=== PATIENT | female | born 1970 | race Caucasian/White ===

== ENCOUNTER 2021-03-07 09:00 | Outpatient (RCR) | payer MEDICAID, SELFPAY | END 2021-04-27 15:21 | disposition home or self-care (01) | LOC: HO.PT 09:00 | PROVIDERS: PCP Internal Medicine; Visit Provider Orthopaedic Surgery | DX: S93.402D Sprain of unspecified ligament of left ankle, subsequent encounter (principal); M76.72 Peroneal tendinitis, left leg | CPT/HCPCS: 97110; 97112; 97140; 97162 ==

== ENCOUNTER 2023-08-08 13:01 | Outpatient (AMB) | payer MEDICARE, MEDICAID, SELFPAY ==
--- NOTE | 2023-08-08 13:15 | MHC.OFFVIS ---
Intake Vital Signs 08/08/23 13:16 Height 5 ft 4 in Weight 210 lb BMI 36.0 Pulse 72 Pulse Source Pulse Oximeter Pulse Oximetry (%) 97 Oxygen Delivery Method Room Air Intake Visit Reasons: shortness of breathe Model And Pattern Supervisor Required: No Allergies oxycodone Allergy (Severe, Verified 08/08/23 13:18) Itching ZyrTEC Allergy (Unknown, Uncoded 08/08/23 13:18) Unknown HPI HPI Comments History of Present Illness Details The patient is here for pulmonary evaluation. The patient is a 52 year woman with a known history of asthma. Apparently she has been in usual state health until noticing increasing shortness of breath. The shortness of breath has been progressively getting worse. The shortness of breath appears to be intermittent. The patient had 1 episode where she had a syncopal episode. It was noted that she was bradycardic. Ultimately after that she did undergo a event monitor. Now having a cardiac workup. In meantime she has been describing some increasing shortness of breath. We did go for brief walking oximetry and the patient's oxygen was fine. Her breathing currently is stable. At this point will assess her further for underlying obstructive airway conditions specially with smoking history. However, my suspicion is that there may be a cardiac component to her intermittent shortness of breath. [facility] Medical History (Updated 08/10/23 @ 21:05 by Win Hurtado MD) Dyspnea GIL (obstructive sleep apnea) Asthma Social History (Updated 08/08/23 @ 13:20 by CHRISTIE Marcelo) Patient Tobacco Use Status: Former Tobacco user Tobacco use type: Cigarette Years Smoked: 30+ Years Review of Systems Const Denies fever(s) Eyes Denies change in vision ENT Reports nasal congestion Card Denies chest pain, Reports lightheadedness, Reports dyspnea and Reports slow heart rate Resp Reports dyspnea and Denies wheezing GI Reports no additional complaints Musc Reports myalgias Skin/Breast Denies rash Aubrey/Lymph Denies lymphadenopathy Aller/Immun Denies wheezing Physical Exam Vital Signs: Last Vital Signs Pulse 72 08/08/23 13:16 Pulse Ox 97 08/08/23 13:16 Oxygen Delivery Method Room Air 08/08/23 13:16 BMI result Body Mass Index 36.0 Const General: comfortable HEENT Head: Yes normocephalic Neck Neck: Yes supple Chest Chest palpation & inspection: normal inspection of the chest Resp Effort & Inspection: normal respiratory effort Auscultation: clear to auscultation bilaterally Cardio Heart sounds: S1 normal heart sound present and S2 normal heart sound present GI Palpation (GI): Soft to palpation Skin General skin exam: no rashes or lesions noted Extrem General: Yes no clubbing, cyanosis or edema Assessment & Plan Assessment & Plan (1) Asthma: Code(s): J45.909 - Unspecified asthma, uncomplicated Qualifiers: Asthma severity: moderate Asthma persistence: persistent Asthma complication type: uncomplicated Qualified Code(s): J45.40 - Moderate persistent asthma, uncomplicated (2) GIL (obstructive sleep apnea): Code(s): G47.33 - Obstructive sleep apnea (adult) (pediatric) (3) Dyspnea: Code(s): R06.00 - Dyspnea, unspecified Qualifiers: Dyspnea type: unspecified Qualified Code(s): R06.00 - Dyspnea, unspecified Plan PFTs CXR continue Wixela DEBBI as needed complete cardiac work-up F/U 8-10 weeks Orders: Orders XR chest 2V 08/08/23 G47.33 - Obstructive sleep apnea (adult) (pediatric), J45.909 - Unspecified asthma, uncomplicated, R06.00 - Dyspnea, unspecified PFT pulmonary function test 08/08/23 G47.33 - Obstructive sleep apnea (adult) (pediatric), J45.909 - Unspecified asthma, uncomplicated, R06.00 - Dyspnea, unspecified Coding Level of Care Code New Pt Level 4 (15848) Diagnoses Moderate persistent asthma without complication J45.40 Asthma severity: moderate Asthma persistence: persistent Asthma complication type: uncomplicated GIL (obstructive sleep apnea) G47.33 Dyspnea, unspecified type R06.00 Dyspnea type: unspecified Time Spent (min) 37
[2023-08-08 13:16] VITALS: PULSE 72; O2SAT 97; BMI 36.0
== END 2023-08-08 13:45 | disposition home or self-care (01) ==
PROVIDERS: PCP Internal Medicine; Visit Provider Hospitalist
DX: J45.40 Moderate persistent asthma, uncomplicated (principal); G47.33 Obstructive sleep apnea (adult) (pediatric); R06.00 Dyspnea, unspecified
CPT/HCPCS: 99204

== ENCOUNTER 2023-08-08 13:01 | Outpatient (REF) | payer MEDICARE, MEDICAID, SELFPAY ==
--- NOTE | ~2023-08-08 | XR_ITS ---
EXAMINATION: XR CHEST CLINICAL INFORMATION: Obstructive sleep apnea. COMPARISON: Chest radiograph 11/07/2010. TECHNIQUE: 2 views of the chest were obtained. FINDINGS: Normal appearance of the cardiomediastinal silhouette. No focal airspace opacities, pleural effusion or pneumothorax. Right upper quadrant surgical clips. No acute osseous findings. XR/XR chest 2V IMPRESSION: No acute cardiopulmonary findings.
== END 2023-08-08 13:02 | disposition home or self-care (01) ==
LOC: HO.XRAY 13:01
PROVIDERS: PCP Internal Medicine; Visit Provider Hospitalist
DX: R06.00 Dyspnea, unspecified (principal); J45.909 Unspecified asthma, uncomplicated; G47.33 Obstructive sleep apnea (adult) (pediatric)
CPT/HCPCS: 71046; 99202

== ENCOUNTER 2023-09-08 08:44 | Outpatient (REF) | payer MEDICARE, MEDICAID, SELFPAY ==
[2023-09-08 07:38] VITALS: PULSE 62; RESP 16; O2SAT 99
--- NOTE | 2023-09-08 13:44 | PFT_ITS ---
Flows: FEV1: 62 % of predicted at 1.64 L FVC: 79 % of predicted at 2.62 L FEV1/FVC: 62 % Bronchodilator response: Absent Volumes: No lung volumes measurements available secondary to a technical issue. Diffusion capacity: Normal Impression: Moderate obstructive ventilatory defect with no bronchodilator response. No lung volumes measurements available secondary to a technical issue. MTDD
== END 2023-09-08 08:45 | disposition home or self-care (01) ==
LOC: HO.RESP 08:44
PROVIDERS: PCP Internal Medicine; Visit Provider Hospitalist
DX: G47.33 Obstructive sleep apnea (adult) (pediatric) (principal); J45.909 Unspecified asthma, uncomplicated; R06.00 Dyspnea, unspecified
CPT/HCPCS: 94010; 94640; 94727; 94729

== ENCOUNTER → 2023-09-08 13:44 | Outpatient (BNV) | payer MEDICARE, MEDICAID, SELFPAY | PROVIDERS: PCP Internal Medicine; Visit Provider Internal Medicine Pulmonary Disease | DX: R06.09 Other forms of dyspnea (principal) | CPT/HCPCS: 94060; 94729 ==

== ENCOUNTER 2023-10-14 14:57 | Outpatient (RCR) | payer MEDICARE, MEDICAID, SELFPAY | END 2023-10-14 16:16 | disposition home or self-care (01) | LOC: HO.PT 14:57 | PROVIDERS: PCP Nurse Practitioner; Visit Provider Internal Medicine Rheumatology | DX: M54.2 Cervicalgia (principal) | CPT/HCPCS: 97161 ==

== ENCOUNTER 2023-10-31 09:53 | Outpatient (AMB) | payer MEDICARE, MEDICAID, SELFPAY ==
--- NOTE | 2023-10-31 09:57 | A.OFFVIS_ITS ---
Vital Signs 10/31/23 09:59 Height 5 ft 4 in Weight 214 lb 15.211 oz BMI 36.9 Position Sitting Pulse 80 Pulse Source Pulse Oximeter Pulse Oximetry (%) 96 Oxygen Delivery Method Room Air Intake Visit Reasons: Shortness of breath Principal Examiner Required: No Allergies oxycodone Allergy (Severe, Verified 10/31/23 10:00) Itching ZyrTEC Allergy (Unknown, Uncoded 10/31/23 10:00) Unknown HPI Comments Details: The patient is a 53 year woman with a known history of asthma. Apparently she has been in usual state health until noticing increasing shortness of breath. The shortness of breath has been progressively getting worse. The shortness of breath appears to be intermittent. The patient had 1 episode where she had a syncopal episode. It was noted that she was bradycardic. Ultimately after that she did undergo a event monitor. Now having a cardiac workup. In meantime she has been describing some increasing shortness of breath. We did go for brief walking oximetry and the patient's oxygen was fine. Her breathing currently is stable. At this point will assess her further for underlying obstructive airway conditions specially with smoking history. However, my suspicion is that there may be a cardiac component to her intermittent shortness of breath. 10/31/2023 the patient is here for a pulmonary follow-up visit. Overall the patient has been feeling well. She does been using Wixela. She still having episodes of shortness of breath and cough. Unfortunately still smoking marijuana and also sometimes smoking a few puffs of a regular cigarette from a friend. She did have a chest x-ray which we personally reviewed demonstrating no acute disease. Although I do believe that she will be a great candidate for the lung cancer screening program. Therefore will going to refer her at this time. She has been struggling with her CPAP. She does use a nasal mask and she has a hard time with the nasal congestion. She has been using allergy medicine. I will resend her the nasal spray but I do believe that a fullface mask would probably be work best specially if she has allergies and sinusitis issues. Will request a from her [employer], [employer]. We also looked at her pulmonary function studies the patient does have evidence of COPD at this time. She is aware this and she knows she needs to refrain from any smoking of any products. PFSH Medical History (Updated 10/31/23 @ 10:31 by Win Hurtado MD) Asthma-COPD overlap syndrome Smoking Dyspnea GIL (obstructive sleep apnea) Asthma Social History (Updated 08/08/23 @ 13:20 by CHRISTIE Marcelo) Patient Tobacco Use Status: Former Tobacco user Tobacco use type: Cigarette Years Smoked: 30+ Years Review of Systems Const Denies fever(s) Eyes Denies change in vision ENT Reports nasal congestion Card Denies chest pain, Reports lightheadedness and Reports dyspnea Resp Reports dyspnea and Denies wheezing GI Reports no additional complaints Musc Reports myalgias Skin/Breast Denies rash Aubrey/Lymph Denies lymphadenopathy Aller/Immun Denies wheezing Physical Exam Vital Signs: Last Vital Signs Pulse 80 10/31/23 09:59 Pulse Ox 96 10/31/23 09:59 Oxygen Delivery Method Room Air 10/31/23 09:59 BMI result Body Mass Index 36.9 Const General: comfortable HEENT Head: Yes normocephalic Neck Neck: Yes supple Chest Chest palpation & inspection: normal inspection of the chest Resp Effort & Inspection: normal respiratory effort Auscultation: clear to auscultation bilaterally Cardio Heart sounds: S1 normal heart sound present and S2 normal heart sound present GI Palpation (GI): Soft to palpation Skin General skin exam: no rashes or lesions noted Extrem General: Yes no clubbing, cyanosis or edema Assessment & Plan Assessment & Plan (1) Asthma: Code(s): J45.909 - Unspecified asthma, uncomplicated Category: Medical Qualifiers: Asthma complication type: uncomplicated Asthma persistence: persistent Asthma severity: moderate Qualified Code(s): J45.40 - Moderate persistent asthma, uncomplicated (2) GIL (obstructive sleep apnea): Code(s): G47.33 - Obstructive sleep apnea (adult) (pediatric) Category: Medical (3) Dyspnea: Code(s): R06.00 - Dyspnea, unspecified Category: Medical Qualifiers: Dyspnea type: unspecified Qualified Code(s): R06.00 - Dyspnea, unspecified (4) Asthma-COPD overlap syndrome: Code(s): J44.89 - Other specified chronic obstructive pulmonary disease Category: Medical (5) Smoking: Code(s): F17.200 - Nicotine dependence, unspecified, uncomplicated Category: Social Hx Plan stop Wixela start Trelegy DEBBI as needed LDCT evaluation CPAP, would benefit from a full face mask. F/U 6 mo Orders: Referrals Thoracic Surgery Referral F17.200 - Nicotine dependence, unspecified, uncomplicated Medications: New fluticasone propionate 50 mcg/actuation 2 sprays intranasal DAILY 15.8 mL 11RF 30 days J31.0 - Chronic rhinitis aapgcifplss-jqxidhwjt-wfieecgu 200-62.5-25 mcg (Trelegy Ellipta) 1 inh inhalation DAILY 60 ea 12RF 30 days Coding Level of Care Code Est Pt Level 4 (12951) Diagnoses Moderate persistent asthma without complication J45.40 Asthma complication type: uncomplicated Asthma persistence: persistent Asthma severity: moderate GIL (obstructive sleep apnea) G47.33 Dyspnea, unspecified type R06.00 Dyspnea type: unspecified Asthma-COPD overlap syndrome J44.89 Smoking F17.200 Time Spent (min) 17
[2023-10-31 09:59] VITALS: PULSE 80; O2SAT 96; BMI 36.9
== END 2023-10-31 10:29 | disposition home or self-care (01) ==
PROVIDERS: PCP Internal Medicine; Visit Provider Hospitalist
DX: J45.40 Moderate persistent asthma, uncomplicated (principal); G47.33 Obstructive sleep apnea (adult) (pediatric); R06.00 Dyspnea, unspecified; J44.89 Other specified chronic obstructive pulmonary disease; F17.200 Nicotine dependence, unspecified, uncomplicated
CPT/HCPCS: 99214

== ENCOUNTER → 2023-10-31 09:53 | Outpatient (BNVA) | payer MEDICARE, MEDICAID, SELFPAY | PROVIDERS: PCP Internal Medicine; Visit Provider Hospitalist | DX: J44.89 Other specified chronic obstructive pulmonary disease (principal); J45.40 Moderate persistent asthma, uncomplicated; R06.00 Dyspnea, unspecified; G47.33 Obstructive sleep apnea (adult) (pediatric); Z87.891 Personal history of nicotine dependence | CPT/HCPCS: 99212 ==

== ENCOUNTER 2023-12-12 10:38 | Outpatient (AMB) | payer MEDICARE, MEDICAID, SELFPAY ==
--- NOTE | 2023-12-12 07:48 | A.OFFVIS_ITS ---
Intake Visit Reasons: Former Smoker Allergies oxycodone Allergy (Severe, Verified 10/31/23 10:00) Itching ZyrTEC Allergy (Unknown, Uncoded 10/31/23 10:00) Unknown HPI HPI Former Smoker: Details: Initial visit for this 53yo former smoker with a 20PYH. Patient started smoking at age 11 for 36 years at 1/2-3/4ppd. She quit 6 years ago in 2018. . Reports marijuana use 5 days a week. Notes social second hand smoke exposure. Denies exposure to chemicals or substances like asbestos. . Denies known family history of lung cancer. Denies personal history of cancers. Pre-cervical cancer - s/p partial hysterectomy. Denies chest CT in last year. . Denies recent travel outside the [place]. Denies recent respiratory illness or recent hospitalization for respiratory issues. Denies testing positive for COVID. Admits receiving COVID Vaccine. x4. . She notes occasional trouble swallowing liquids - has not been worked up but she does not want to. Denies fever, chills, new/worsening cough, hemoptysis, hoarseness. Denies significant chest pain, significant dyspnea or unintentional weight loss. Patient Lung Cancer Screening Questionnaire reviewed with patient by provider. . Shared Decision Making Completed. Patient meets criteria. Discussed in detail with patient, the risk vs benefit of LDCT screening. Patient consents to proceed with scan. Discussed and encouraged continued smoking cessation. [facility] Medical History (Updated 12/12/23 @ 10:57 by Ara Flores PA-C) Anxiety Hypothyroidism Asthma-COPD overlap syndrome Asthma Dyspnea GIL (obstructive sleep apnea) Personal history of nicotine dependence Surgical History (Updated 12/12/23 @ 10:49 by Ara Flores PA-C) History of partial hysterectomy History of carpal tunnel release of both wrists History of rotator cuff surgery History of cholecystectomy History of appendectomy History of ankle surgery History of hysteroscopy Family History (Updated 12/12/23 @ 10:58 by Ara Flores PA-C) Mother Pancreatic cancer Lupus Maternal Grandfather Stomach cancer Social History (Updated 12/12/23 @ 10:57 by Ara Flores PA-C) Patient Tobacco Use Status: Former Tobacco user Tobacco use type: Cigarette Years Smoked: (onset 11yo, 1/2-3/4ppd x 36yrs, 20pyh - quit 2018) Assessment & Plan Assessment & Plan (1) Personal history of nicotine dependence: Comment: (former smoker - onset 11yo, 1/2-3/4ppd x 36yrs, 20pyh - quit 2017) Code(s): Z87.891 - Personal history of nicotine dependence Category: Medical Plan: - SDM visit completed today in office. - Patient meets criteria for LDCT for lung cancer screening purposes and is asymptomatic. - Smoking cessation counseling offered. Patients can always call [phone]. - Will arrange for a LDCT scan of the chest for screening purposes at [facility]. - Risks, benefits, and alternatives were discussed in detail and the patient agrees to proceed. - Risks discussed include but are not limited to: radiation exposure, anxiety during testing and while awaiting results, false negatives, false positives and possibility of additional intervention such as further imaging or surgical procedures for benign disease. - Benefits are obviously detection of lung cancer at an early stage which can lead to improved outcomes. - Discussed the importance of screening program compliance with adherence to yearly LDCT scan as scheduled - or sooner interval scans for personalized screening regimen. - Discussed follow up plan. Our office will send a letter discussing results and if needed set up phone call and office visit based on CT findings. - Patient educated on results categorization and the management decisions for suspicious findings potentially found on the screening LDCT scan. Any patient with a Lung RADS score of 3 or 4 will be reviewed by a multidisciplinary team at [facility] to form a plan of action in regards to scan findings. - If further work up is warranted for a suspicious lung finding this will be followed by the Lung Cancer Screening program in conjunction with the Thoracic Surgery Department at [facility]. - A copy of the office note and LDCT will be sent to the patient's PCP - as well as documentation on any associated further plans of care. - Incidental findings on LDCT are the PCP's responsibility. These findings are indicated with an S finding on the LDCT Assessment. A note discussing the findings will be sent to the PCP who is then responsible for further management. - All questions answered.? Coding Level of Care Code Lung Cancer Screening G0296 Diagnoses Personal history of nicotine dependence Z87.891
== END 2023-12-12 11:01 | disposition home or self-care (01) ==
PROVIDERS: PCP Internal Medicine; Referring Provider Hospitalist; Visit Provider Physician Assistant Medical
DX: Z87.891 Personal history of nicotine dependence (principal)
CPT/HCPCS: G0296

== ENCOUNTER 2023-12-12 10:55 | Outpatient (REF) | payer MEDICARE, MEDICAID, SELFPAY ==
--- NOTE | ~2023-12-12 | CT_ITS ---
EXAMINATION: CT LOW-DOSE SCREENING CHEST WITHOUT CONTRAST CLINICAL INFORMATION: Personal history of nicotine dependence. The patient has a 36 pack-year history of smoking, having quit 6 years ago. COMPARISON: Chest x-ray 08/08/2023. TECHNIQUE: Multidetector volumetric CT imaging of the chest is performed on a Siemens SOMATOM Definition scanner without contrast using low dose technique. Additional 2D coronal and sagittal reformatted images and axial 3D maximum intensity projection (MIP) images are generated on the CT workstation. This CT examination was performed using dose optimization techniques as appropriate, variously including the following: *Automated exposure control. *Adjustment of mA and/or kV according to patient size (this includes techniques or standardized protocols for targeted exams where dose is matched to indication/reason for exam; i.e. extremities or head). *Use of iterative reconstruction technique. TOTAL EXAM DLP: 65 mGy-cm. CTDIvol: 2.13 mGy. FINDINGS: PULMONARY NODULES: No suspicious pulmonary nodules. LUNGS: Lungs bilaterally symmetrically expanded. There is mild emphysema and bronchial thickening. No focal lung nodule or mass. No effusion or pneumothorax. Central airways patent. MEDIASTINUM: No mediastinal, hilar or axillary adenopathy or free fluid collection. CORONARY ARTERY CALCIFICATION: Mild. THYROID GLAND: Unremarkable to the extent seen. CARDIOVASCULAR STRUCTURES: Aortic and heart size normal. No pericardial effusion. CHEST WALL/AXILLA: Unremarkable. UPPER ABDOMEN: Included portions of the solid organs in the upper abdomen unremarkable on noncontrast imaging aside from hepatic steatosis. There may be bilateral fat density adrenal adenomas present, incompletely imaged. OSSEOUS STRUCTURES: No suspicious focal findings. CT/CT lung screening IMPRESSION: 1. No evidence of pulmonary malignancy. 2. Incidental note made of mild emphysema, hepatic steatosis and possible bilateral adrenal adenomas. 3. Incidental findings (s category): No incidental findings. ASSESSMENT: 1. Lung-RADS Category 1: Negative. There are no nodules or there are definitely benign nodules. 2. Lung-RADS Category S: Negative. There are no clinically significant or potentially clinically significant findings not related to the lungs requiring urgent additional evaluation. RECOMMENDATION: Continued routine annual low-dose CT lung screening in 1 year is recommended. An order for CT CHEST LOW DOSE CANCER SCREENING ([id number]) can be placed.
== END 2023-12-12 10:56 | disposition home or self-care (01) ==
LOC: HO.CT 10:55
PROVIDERS: PCP Nurse Practitioner; Visit Provider Physician Assistant Medical
DX: Z12.2 Encounter for screening for malignant neoplasm of respiratory organs (principal); Z87.891 Personal history of nicotine dependence
CPT/HCPCS: 71271; G0296

== ENCOUNTER 2023-12-14 12:51 | Emergency (ER) | payer MEDICARE, MEDICAID, SELFPAY ==
--- NOTE | ~2023-12-14 | XR_ITS ---
EXAMINATION: XR FOOT, RIGHT CLINICAL INFORMATION: Right foot pain COMPARISON: None available. TECHNIQUE: AP, lateral, and oblique views of the right foot. FINDINGS: Extensive postsurgical changes seen in the distal fibula and hindfoot. Arthrodesis screws and ratna are seen throughout the tarsal bones. A medial arthrodesis hardware bridging the medial cuneiform and talus demonstrates a fracture of the more distal limb component. Remaining surgical hardware is intact. No acute fractures are seen. There is complete arthrodesis of the hindfoot. Secondary degenerative facet changes seen at the ankle mortise. Secondary degenerative changes seen at the tarsometatarsal joint spaces diffusely. No acute fractures are seen. Soft tissues are unremarkable. XR/XR foot RT 2V IMPRESSION: Extensive postsurgical changes as described above. There is a fracture of the medial arthrodesis hardware. No osseous process.
[2023-12-14 13:30] VITALS: BP 173/58; PULSE 77; RESP 18; TEMP 36.3; O2SAT 97; BMI 37.5
--- NOTE | 2023-12-14 13:37 | ED.GENADULT ---
HPI - General Adult General Chief complaint: Extremity Injury, Lower Stated complaint: RT foot infection? Time Seen by Provider: 12/14/23 15:23 Source: patient Mode of arrival: ambulatory Limitations: no limitations History of Present Illness HPI narrative: patient is a 53-year-old female who presents emergency department for evaluation of foot pain. She reports having a blister between the 4th and 5th digit that she is concerned may be infected. She denies any redness, swelling, fevers, chills , pus-like drainage. She also reports diffuse midfoot pain, has had 4 prior surgeries due to fractures and fractured hardware. Was previously being followed by [facility], she is now following with Podiatry at [place]; Dr. Allen, she reports a no fracture to hardware in her foot currently, she is determining whether she wants to undergo another surgery to repair this or have the hardware removed all together. Related Data Home Medications ?Medication ?Instructions ?Recorded ?Confirmed albuterol sulfate 90 mcg/actuation inhalation 08/08/23 aerosol inhaler amlodipine 5 mg tablet 5 mg PO DAILY 08/08/23 levothyroxine 25 mcg tablet 25 mcg PO DAILY 08/08/23 sertraline 50 mg tablet mg PO 08/08/23 sulindac 150 mg tablet 150 mg PO BID 08/08/23 CPAP (CPAP Machine/Device) 10/31/23 baclofen 5 mg tablet 5 mg PO BEDTIME 10/31/23 clonazepam 0.5 mg tablet mg PO ONCE PRN 10/31/23 fexofenadine 60 mg tablet (Gina 120 mg PO DAILY 10/31/23 Allergy) montelukast 10 mg tablet 10 mg PO DAILY 10/31/23 Previous Rx's ?Medication ?Instructions ?Recorded fluticasone fur. 200 mcg-umeclid 1 inh inhalation DAILY 30 days #60 10/31/23 62.5 mcg-vilant 25 mcg ea inhalat.powder (Trelegy Ellipta) fluticasone propionate 50 2 spray intranasal DAILY 30 days 10/31/23 mcg/actuation nasal #15.8 mL spray,suspension Allergies Allergy/AdvReac Type Severity Reaction Status Date / Time oxycodone Allergy Severe Itching Verified 12/14/23 13:36 ZyrTEC Allergy Unknown Unknown Uncoded 10/31/23 10:00 Review of Systems Review of Systems: Yes all other systems are reviewed and are negative [facility] Past Medical History Attestation statement: The following information was validated with the patient. Source: old records reviewed Medical History Anxiety Hypothyroidism Asthma-COPD overlap syndrome Asthma Dyspnea GIL (obstructive sleep apnea) Personal history of nicotine dependence Surgical History History of partial hysterectomy History of carpal tunnel release of both wrists History of rotator cuff surgery History of cholecystectomy History of appendectomy History of ankle surgery History of hysteroscopy Family History Family History (Updated 12/12/23 @ 10:58 by Ara Flores PA-C) Mother Pancreatic cancer Lupus Maternal Grandfather Stomach cancer Social History Social History (Updated 12/12/23 @ 10:57 by Ara Flores PA-C) Alcohol intake: never Patient Tobacco Use Status: Former Tobacco user Tobacco use type: Cigarette Years Smoked: (onset 11yo, 1/2-3/4ppd x 36yrs, 20pyh - quit 2017) Smoked in Last 30 Days: No Use of substances other than those prescribed or required for medical reasons: No Advance Directives: No Advance Directives Information Provided: No Do you have a plan to hurt others: No Plan Physical Exam ED Vital Signs: Vital Signs - 24 hr 12/14/23 13:30 12/14/23 14:00 12/14/23 16:27 Temperature 97.3 F 96.8 F 97 F Pulse Rate 77 63 75 Respiratory Rate 18 18 Blood Pressure 173/58 H 174/69 H 169/70 H Pulse Oximetry 97 97 98 Oxygen Delivery Method Room Air Room Air BMI result Body Mass Index 37.5 Appearance: Alert.?Oriented to person, place and time. No acute distress.?Normal affect.?? Neck: Normal inspection.? Neck supple.?? CVS: Heart sounds normal. Normal heart rate and rhythm.? Pulses normal.?? Respiratory: No respiratory distress.? Lung sounds clear to auscultation bilaterally?? Skin: Skin warm and dry.? Normal skin color.? Extremities: No lower extremity edema.? No calf ttp? positive callus to medial aspect of 5th toe, applying pressure on to lateral aspect of 4th toe. No erythema warmth Or active drainage. 2+ DP/PT pulse bilaterally. Neuro: Moves all extremities spontaneously. Sensation intact bilaterally. Ambulates with normal steady gait. Course Course Course Narrative: RME: Done by PAUL Harris. 53 yold female presents to the ED for right fifth toe pain with a blister. patient wants to see if there is an infection. Patient states no recent trauma. Patient has extensive foot surgeryies from displaced screws. patient wants to evaluation to make screws are intact in foot. no new trauma. no leg swelling, pitting edemea, calf pain, ulcers in foot, ertyehma, foul odor pus discharge, or deformities. Right toe positive for callus/blister in inner fifth toe that is not ulcerated, weeping, gangrene, foul odor, pus drainage, or deformities. Motor, neuro, and vascular exam is intact. foot xray ordered Medical Decision Making Medical Decision Making MDM Narrative: patient is a 53-year-old female who presents emergency department for evaluation of right foot pain. She has report of known fractured hardware in the right foot due to extensive prior surgeries as per HPI, XR today does revealing fracture of medial arthrodesis hardware of the distal limb component bridging the medial cuneiform and talus, no radiographic evidence of osseous abnormality to the 4th-5th toe. On exam, has callus present as per physical exam portion of this note, but no surrounding cellulitis. Discussed with patient plan of care for ipez-eaw-waqwwyn management including gel questions, mole skin padding, and outpatient follow-up with Podiatry, they may consider removal of the callus, in addition to follow-up as scheduled regarding the fractured hardware in her foot. Patient was advised that she should refrain from extensive walking or weight-bearing, she is aware that this may exacerbate her symptoms especially while working, she is currently on disability but states that she needs to work additional time to forward her bills. Differential Diagnosis Differential Diagnoses: The differential diagnosis associated with the presentation includes (See narrative above) Independent Interpretation I performed an independent interpretation of an: Plain X-Ray ( no findings to suggest osteomyelitis) Radiology Impression Discussion of test interpretation with radiology: I have reviewed the radiologist's reading. Radiologist Impression: FINDINGS: Extensive postsurgical changes seen in the distal fibula and hindfoot. Arthrodesis screws and ratna are seen throughout the tarsal bones. A medial arthrodesis hardware bridging the medial cuneiform and talus demonstrates a fracture of the more distal limb component. Remaining surgical hardware is intact. No acute fractures are seen. There is complete arthrodesis of the hindfoot. Secondary degenerative facet changes seen at the ankle mortise. Secondary degenerative changes seen at the tarsometatarsal joint spaces diffusely. No acute fractures are seen. Soft tissues are unremarkable. XR/XR foot RT 2V IMPRESSION: Extensive postsurgical changes as described above. There is a fracture of the medial arthrodesis hardware. No osseous process. External Record Review External record reviewed: Outpatient record Prescription Management I considered prescription management with: Pain Medication ( acetaminophen/ibuprofen) Discharge Plan Discharge Clinical Impression: Callus between toes, Painful orthopaedic hardware Patient Disposition: Home, Self-Care Additional Instructions: as discussed, follow-up closely with your [employer] attendant regarding the fractured hardware in your foot. You should also discuss with them removal of the callus to the toe. Purchase saiy-yjg-aibovyq gel questions and mole skin padding to prevent worsening symptoms. Prescriptions: No Action sulindac 150 mg tablet 150 mg PO BID sertraline 50 mg tablet PO levothyroxine 25 mcg tablet 25 mcg PO DAILY amlodipine 5 mg tablet 5 mg PO DAILY albuterol sulfate 90 mcg/actuation HFA aerosol inhaler inhalation clonazepam 0.5 mg tablet PO ONCE PRN baclofen 5 mg tablet 5 mg PO BEDTIME fexofenadine [Gina Allergy] 60 mg tablet 120 mg PO DAILY montelukast 10 mg tablet 10 mg PO DAILY (DME) CPAP Machine/Device Device See Rx Instructions .ROUTE Rx Instructions: As directed fluticasone propionate 50 mcg/actuation spray,suspension 2 spray intranasal DAILY 30 Days Qty: 15.8 11RF Trelegy Ellipta 200-62.5-25 mcg blister with device 1 inh inhalation DAILY 30 Days Qty: 60 12RF Referrals: Physician,Unknown J [Primary Care Provider] - Interventions: ED Discharge Assessment Last Done: 12/14/23 16:27 Discharge Date/Time: 12/14/23 16:28 Print Language: Uzbek
[2023-12-14 14:00] VITALS: BP 174/69; PULSE 63; TEMP 36; O2SAT 97
[2023-12-14 16:27] VITALS: BP 169/70; PULSE 75; RESP 18; TEMP 36.1; O2SAT 98
== END 2023-12-14 16:28 | disposition home or self-care (01) ==
PROVIDERS: Emergency Provider Emergency Medicine
DX: T84.84XA Pain due to internal orthopedic prosthetic devices, implants and grafts, initial encounter (principal); L84 Corns and callosities; Y79.3 Surgical instruments, materials and orthopedic devices (including sutures) associated with adverse incidents; Y92.9 Unspecified place or not applicable
CPT/HCPCS: 73620; 99283; 99284

== ENCOUNTER 2024-05-13 14:07 | Outpatient (AMB) | payer MEDICARE, MEDICAID, SELFPAY ==
[2024-05-13 14:08] VITALS: BP 128/64; PULSE 89; O2SAT 95
--- NOTE | 2024-05-13 14:08 | MHC.OFFVIS ---
Vital Signs 05/13/24 14:08 Weight 223 lb 12.307 oz BP 128/64 Blood Pressure Location Lt brachial Position Sitting Pulse 89 Pulse Source Pulse Oximeter Pulse Oximetry (%) 95 Oxygen Delivery Method Room Air Intake Visit Reasons: Shortness of breath Allergies oxycodone Allergy (Severe, Verified 05/13/24 14:11) Itching ZyrTEC Allergy (Unknown, Uncoded 05/13/24 14:11) Unknown Medication List - Last Reconciled 05/13/24 by Emily Xiong LPN albuterol sulfate 90 mcg/actuation inhalation amlodipine 5 mg PO DAILY baclofen 5 mg PO BEDTIME clonazepam mg PO ONCE PRN CPAP (CPAP Machine/Device) As directed fexofenadine (Gina Allergy) 120 mg PO DAILY fluticasone propionate 50 mcg/actuation 2 sprays intranasal DAILY 30 days gxjjtochhqw-imnuejfas-sjdheadl 200-62.5-25 mcg (Trelegy Ellipta) 1 inh inhalation DAILY 30 days levothyroxine 25 mcg PO DAILY montelukast 10 mg PO DAILY sertraline mg PO sulindac 150 mg PO BID HPI Comments Details: The patient is a 53 year woman with a known history of asthma. Apparently she has been in usual state health until noticing increasing shortness of breath. The shortness of breath has been progressively getting worse. The shortness of breath appears to be intermittent. The patient had 1 episode where she had a syncopal episode. It was noted that she was bradycardic. Ultimately after that she did undergo a event monitor. Now having a cardiac workup. In meantime she has been describing some increasing shortness of breath. We did go for brief walking oximetry and the patient's oxygen was fine. Her breathing currently is stable. At this point will assess her further for underlying obstructive airway conditions specially with smoking history. However, my suspicion is that there may be a cardiac component to her intermittent shortness of breath. 10/31/2023 the patient is here for a pulmonary follow-up visit. Overall the patient has been feeling well. She does been using Wixela. She still having episodes of shortness of breath and cough. Unfortunately still smoking marijuana and also sometimes smoking a few puffs of a regular cigarette from a friend. She did have a chest x-ray which we personally reviewed demonstrating no acute disease. Although I do believe that she will be a great candidate for the lung cancer screening program. Therefore will going to refer her at this time. She has been struggling with her CPAP. She does use a nasal mask and she has a hard time with the nasal congestion. She has been using allergy medicine. I will resend her the nasal spray but I do believe that a fullface mask would probably be work best specially if she has allergies and sinusitis issues. Will request a from her [employer] company, [employer]. We also looked at her pulmonary function studies the patient does have evidence of COPD at this time. She is aware this and she knows she needs to refrain from any smoking of any products. 05/13/2024 the patient is here for a pulmonary follow-up visit. Overall the patient has been doing well. She is responding well to Trelegy. Although she still has a productive cough. She has evidence of chronic bronchitis due to her COPD. I did offer her Brennen has good option for her to try to maximize his respiratory medicines. When she starts the medication she is going to be watching closely for any GI adverse effects. Hopefully she can tolerate as we can improve her chronic bronchitis. In the meantime she continues with her CPAP. CPAP therapy continues to be affecting beneficial. She does use it for more than 4 hours a night. The therapy has been affecting beneficial and she does like her mask. The patient did have a lung cancer screening CT scan. The CT scan was reassuring this was over the summer. And she did have some mild emphysema that was not very significant. Patient follow-up in a year's time if she has any issues prior to that she will call for an earlier assessment. [facility] Medical History Anxiety Hypothyroidism Asthma-COPD overlap syndrome Asthma Dyspnea GIL (obstructive sleep apnea) Personal history of nicotine dependence Surgical History History of partial hysterectomy History of carpal tunnel release of both wrists History of rotator cuff surgery History of cholecystectomy History of appendectomy History of ankle surgery History of hysteroscopy Family History (Updated 12/12/23 @ 10:58 by Ara Flores PA-C) Mother Pancreatic cancer Lupus Maternal Grandfather Stomach cancer Social History (Updated 12/12/23 @ 10:57 by Ara Flores PA-C) Alcohol intake: never Patient Tobacco Use Status: Former Tobacco user Tobacco use type: Cigarette Years Smoked: (onset 11yo, 1/2-3/4ppd x 36yrs, 20pyh - quit 2018) Review of Systems Const Denies fever(s) Eyes Denies change in vision ENT Reports nasal congestion Card Denies chest pain, Reports lightheadedness and Reports dyspnea on exertion Resp Reports dyspnea on exertion and Denies wheezing GI Reports no additional complaints Musc Reports myalgias Skin/Breast Denies rash Aubrey/Lymph Denies lymphadenopathy Aller/Immun Denies wheezing Physical Exam Vital Signs: Last Vital Signs Pulse 89 05/13/24 14:08 BP 128/64 05/13/24 14:08 Pulse Ox 95 05/13/24 14:08 Oxygen Delivery Method Room Air 05/13/24 14:08 Const General: comfortable HEENT Head: Yes normocephalic Neck Neck: Yes supple Chest Chest palpation & inspection: normal inspection of the chest Resp Effort & Inspection: normal respiratory effort Auscultation: clear to auscultation bilaterally Cardio Heart sounds: S1 normal heart sound present and S2 normal heart sound present GI Palpation (GI): Soft to palpation Skin General skin exam: no rashes or lesions noted Extrem General: Yes no clubbing, cyanosis or edema Assessment & Plan Assessment & Plan (1) Asthma: Code(s): J45.909 - Unspecified asthma, uncomplicated Category: Medical Qualifiers: Asthma complication type: uncomplicated Asthma persistence: persistent Asthma severity: moderate Qualified Code(s): J45.40 - Moderate persistent asthma, uncomplicated (2) GIL (obstructive sleep apnea): Code(s): G47.33 - Obstructive sleep apnea (adult) (pediatric) Category: Medical (3) Dyspnea: Code(s): R06.00 - Dyspnea, unspecified Category: Medical Qualifiers: Dyspnea type: unspecified Qualified Code(s): R06.00 - Dyspnea, unspecified (4) Asthma-COPD overlap syndrome: Code(s): J44.89 - Other specified chronic obstructive pulmonary disease Category: Medical (5) Smoking: Code(s): F17.200 - Nicotine dependence, unspecified, uncomplicated Category: Social Hx Plan continue Trelegy DEBBI as needed LDCT evaluation start Daliresp 500 mcg CPAP, would benefit from a full face mask. F/U 6 mo Medications: New roflumilast (Daliresp) 500 mcg PO DAILY 30 tabs 8RF 30 days J44.89 - Other specified chronic obstructive pulmonary disease Coding Level of Care Code Est Pt Level 4 (98606) Diagnoses Moderate persistent asthma without complication J45.40 Asthma complication type: uncomplicated Asthma persistence: persistent Asthma severity: moderate GIL (obstructive sleep apnea) G47.33 Dyspnea, unspecified type R06.00 Dyspnea type: unspecified Asthma-COPD overlap syndrome J44.89 Smoking F17.200 Time Spent (min) 17
== END 2024-05-13 14:30 | disposition home or self-care (01) ==
PROVIDERS: PCP Internal Medicine; Visit Provider Hospitalist
DX: J45.40 Moderate persistent asthma, uncomplicated (principal); G47.33 Obstructive sleep apnea (adult) (pediatric); R06.00 Dyspnea, unspecified; J44.89 Other specified chronic obstructive pulmonary disease; F17.200 Nicotine dependence, unspecified, uncomplicated
CPT/HCPCS: 99214

== ENCOUNTER → 2024-05-13 14:07 | Outpatient (BNVA) | payer MEDICARE, MEDICAID, SELFPAY | PROVIDERS: Visit Provider Hospitalist | DX: J42 Unspecified chronic bronchitis (principal); J45.40 Moderate persistent asthma, uncomplicated; G47.33 Obstructive sleep apnea (adult) (pediatric); R06.00 Dyspnea, unspecified; J44.89 Other specified chronic obstructive pulmonary disease; Z87.891 Personal history of nicotine dependence; Z79.899 Other long term (current) drug therapy; Z99.89 Dependence on other enabling machines and devices | CPT/HCPCS: 99212 ==

== ENCOUNTER 2025-06-26 17:41 | Emergency (ER) | payer MEDICARE, MEDICAID, SELFPAY ==
[2025-06-26 17:49] VITALS: BP 159/91; PULSE 77; RESP 18; TEMP 36.9; O2SAT 98; BMI 35.9
--- NOTE | 2025-06-26 17:49 | ED.SKABFB ---
HPI - Skin/Abscess/Foreign Bdy General Chief complaint: Wound/Laceration Stated complaint: R/O Cellulitis Vaginal area Time Seen by Provider: 06/26/25 18:07 History of Present Illness ED Provider: Kaela LARIOS narrative: the patient is a 54-year-old woman who was concerned that she has had a skin lesion at the belt line of her anterior lower abdomen for about a week. She says that there has been purulent drainage. She also says that she has felt feverish over the last several days. She also says that she has had discomfort with urination and is concerned that she might also have a UTI. No nausea or vomiting. the patient denies any history of diabetes. She says that she recently had outpatient blood work through her primary care doctor's office and was not told that she has any evidence of diabetes. Related Data Home Medications ?Medication ?Instructions ?Recorded ?Confirmed albuterol sulfate 90 mcg/actuation inhalation 08/08/23 05/13/24 aerosol inhaler amlodipine 5 mg tablet 5 mg PO DAILY 08/08/23 05/13/24 levothyroxine 25 mcg tablet 25 mcg PO DAILY 08/08/23 05/13/24 sertraline 50 mg tablet mg PO 08/08/23 05/13/24 sulindac 150 mg tablet 150 mg PO BID 08/08/23 05/13/24 CPAP (CPAP Machine/Device) 10/31/23 05/13/24 baclofen 5 mg tablet 5 mg PO BEDTIME 10/31/23 05/13/24 clonazepam 0.5 mg tablet mg PO ONCE PRN 10/31/23 05/13/24 fexofenadine 60 mg tablet (Gina 120 mg PO DAILY 10/31/23 05/13/24 Allergy) montelukast 10 mg tablet 10 mg PO DAILY 10/31/23 05/13/24 Previous Rx's ?Medication ?Instructions ?Recorded fluticasone propionate 50 2 spray intranasal DAILY 30 days 10/31/23 mcg/actuation nasal #15.8 mL spray,suspension fluticasone fur. 200 mcg-umeclid 1 inh inhalation DAILY 30 days #60 11/05/24 62.5 mcg-vilant 25 mcg ea inhalat.powder (Trelegy Ellipta) roflumilast 500 mcg tablet 500 mcg PO DAILY 30 days #30 tabs 06/01/25 (Daliresp) cefadroxil 500 mg capsule 500 mg PO BID 7 days #14 caps 06/26/25 doxycycline monohydrate 100 mg 100 mg PO BID #14 caps 06/26/25 capsule Allergies Allergy/AdvReac Type Severity Reaction Status Date / Time oxycodone Allergy Severe Itching Verified 06/26/25 17:51 ZyrTEC Allergy Unknown Unknown Uncoded 06/26/25 17:51 Review of Systems Review of Systems: Yes all other systems are reviewed and are negative [facility] Past Medical History Medical History Anxiety Hypothyroidism Asthma-COPD overlap syndrome Asthma Dyspnea GIL (obstructive sleep apnea) Personal history of nicotine dependence Surgical History History of partial hysterectomy History of carpal tunnel release of both wrists History of rotator cuff surgery History of cholecystectomy History of appendectomy History of ankle surgery History of hysteroscopy Family History Family History (Updated 12/12/23 @ 10:58 by Ara Flores PA-C) Mother Pancreatic cancer Lupus Maternal Grandfather Stomach cancer Social History Social History (Updated 12/12/23 @ 10:57 by Ara Flores PA-C) Alcohol intake: never Patient Tobacco Use Status: Former Tobacco user Tobacco use type: Cigarette Years Smoked: (onset 11yo, 1/2-3/4ppd x 36yrs, 20pyh - quit 2017) Advance Directives: No Advance Directives Information Provided: No Do you have a plan to hurt others: No Plan Physical Exam Vital Signs: Vital Signs: Last Vital Signs Temp 98.4 F 06/26/25 17:49 Pulse 77 06/26/25 17:49 Resp 18 06/26/25 17:49 BP 159/91 H 06/26/25 17:49 Pulse Ox 98 06/26/25 17:49 O2 Del Method Room Air 06/26/25 17:49 BMI result Body Mass Index 35.9 Const: Other: The patient is a 54-year-old woman who was awake, alert, pleasant, cooperative. She does not appear obviously acutely ill. She looks Orientation/consciousness: patient oriented x3 HEENT: Other: The face is symmetrical. Mucous membranes moist. Eyes: Other: Pupils are round equal, conjunctivae are clear, extraocular movements intact Neck: Neck: Yes normal visual inspection and Yes full ROM Resp: Effort & Inspection: normal respiratory effort Auscultation: clear to auscultation bilaterally Cardio: Rate: regular rate Rhythm: regular rhythm Heart sounds: S1 normal heart sound present and S2 normal heart sound present GI: Other: Abdomen is soft and nontender Skin: Other: the patient has a small open flat lesion to the skin just below the belt line anteriorly. There seems to be some minimal wet drainage from this lesion which is less than 1 sq cm in size. There is a 2nd lesion very close which is smaller and which is not open or draining. Neuro: General: patient oriented x3, gait normal, tone normal, moves all extremities, no focal motor deficits and CN's II-XI intact bilaterally Extrem: Other: There is no calf swelling or tenderness. No asymmetry. No peripheral edema. Course Course Course Narrative: This is a Rapid Medical Examination (RME) performed by Sharon Espinoza NP in triage. Full assessment, plan deferred to correspondence analyst. 54-year-old female medical history significant for asthma, GIL, COPD, presenting to the ED with chief complaint of 1-2 abscesses/area of cellulitis to the left labia, enlarging, one area did pop, she reports white pus to the area. She reports thinking it was a pimple. No waxing/shaving to the area. Subjective fever, chills. No chest pain, SOB, abdominal pain. Noticed it initially 2-4 days ago. Was sick with viral illness in the beginning of last week, unsure if related. Complaining of urinary frequency (hx overactive bladder), some dysuria, and lower mid-back pain. Plan: Urinalysis, labs. Medical Decision Making Medical Decision Making MDM Narrative: The patient is a 54-year-old woman who has a small skin lesion which is open but very superficial and has some slight purulent drainage. This is on the skin just below the belt line anteriorly. the lesion was swabbed for a culture and the patient will be started on doxycycline and cefadroxil. The patient also complained of urinary discomfort. her urinalysis is negative for infection however. She will be discharged with the antibiotics mentioned above. She should follow up with her PCP. Lab Data Labs: Lab Results 12/21/25 Range/Units 18:31 Urine Color Yellow Urine Appearance Clear Urine pH 6.0 (5.0-9.0) Ur Specific [place] 1.020 (1.005-1.025) Urine Protein Negative (Neg-Trace) mg/dL Urine Glucose (UA) Negative (Negative) mg/dL Urine Ketones Negative (Negative) mg/dL Urine Blood Small (1+) H (Negative) Urine Nitrite Negative (Negative) Ur Leukocyte Esterase Negative (Negative) Urine RBC 11-20 H (0-2) /HPF Urine WBC 0-5 (0-5) /HPF Ur Squamous Epith Cells 0-2 (0-2) /HPF Urine Bacteria Trace (None Seen) Hyaline Casts 0-2 (0-2) /LPF Discharge Plan Discharge Clinical Impression: Skin infection Patient Disposition: Home, Self-Care Additional Instructions: you has been started on antibiotics for your skin infection. You have tested negative for urinary infection. Please order picker the antibiotics at your pharmacy tomorrow morning and take both antibiotic 2 times a day for 7 days. the culture result might indicate that you do not need to take both antibiotics. It would be reasonable for you to contact your primary care doctor's office on Friday to see if there is a result which might help you stop taking 1 of these 2 antibiotics. Please follow up with your regular doctor at sometime in the next few weeks to discuss this episode. Return to the emergency room if significantly worse. Prescriptions: New cefadroxil 500 mg capsule 500 mg PO BID 7 Days Qty: 14 0RF doxycycline monohydrate 100 mg capsule 100 mg PO BID Qty: 14 0RF No Action Trelegy Ellipta 200-62.5-25 mcg blister with device 1 inh inhalation DAILY 30 Days Qty: 60 12RF roflumilast [Daliresp] 500 mcg tablet 500 mcg PO DAILY 30 Days Qty: 30 0RF sulindac 150 mg tablet 150 mg PO BID sertraline 50 mg tablet PO levothyroxine 25 mcg tablet 25 mcg PO DAILY amlodipine 5 mg tablet 5 mg PO DAILY albuterol sulfate 90 mcg/actuation HFA aerosol inhaler inhalation clonazepam 0.5 mg tablet PO ONCE PRN baclofen 5 mg tablet 5 mg PO BEDTIME fexofenadine [Gina Allergy] 60 mg tablet 120 mg PO DAILY montelukast 10 mg tablet 10 mg PO DAILY (DME) CPAP Machine/Device Device See Rx Instructions .Route Rx Instructions: As directed fluticasone propionate 50 mcg/actuation spray,suspension 2 spray intranasal DAILY 30 Days Qty: 15.8 11RF Referrals: Emily Dale MD [Primary Care Provider, Medical] Print Language: Yemeni
--- OUTSIDE RECORDS SUMMARY | 2025-06-26 18:17 | XMS_ITS | Patient Health Record ---
[facility] Address [address] [place] [address] Care Team Providers Care Statistician Mathematical Name Role Phone ARACELIS RAMOS Unavailable [phone] Allergies Allergen (clinical drug ingredient) Drug/Non Drug Allergy documented on EMR Reaction Allergy Type Onset Date Status Zyrtec (uncoded) double vision Allergy Active Reason For Referral No Information Social History Tobacco Use: Social History Observation Description Date Details (start date - stop date) Former Smoker NA - NA Tobacco Use/Smoking Question Answer Notes Are you a former smoker How long has it been since you last smoked? 1-5 years Alcohol Screen (Audit-C) Question Answer Notes Did you have a drink contain ing alcohol in the past year? Yes How often did you have a dri nk containing alcohol in the past year? 4 or more times a week (4 points) Points 4 Interpretation Positive Sexual History Question Answer Notes Had sex in the past 12 months (vaginal, oral, or anal)? No Tobacco use other than smoking: Question Answer Notes Are you an other tobacco user? No Problems Problem Type SNOMED Code ICD Code Onset Dates Problem Status W/U Status Risk Notes Problem Body mass index 40+ - severely obese (532507550) Body mass index (BMI) 40.0-44.9, adult (Z68.41) Active confirmed Plan Of Treatment Pending Test Test Name Order Date ULTRASOUND: PELVIC W/TRANSVAGINAL 2018 Insurance Providers Payer Name Payer Address Payer Phone Subscriber Number Group Number Insured Name Patient Relationship to Insured Coverage Start Date Coverage End Date [employer] [place] [address] [place] [address] [phone] [id number] JOSEPH RIVAS Self - patient is the insured Medical (General) History Medical History History ICD Code Mental and behavioral problems V40 Asthma 493 Thyroiditis 245 Spondylosis without myelopathy or radicu lopathy, lumbosacral region M47.817 Surgical History Surgery Date(Month/Year) Right carpal tunnel 08/2018 Left carpal tunnel 09/2018 Appendectomy 1995 Cholecystectomy 2003 Tubal ligation 1998
--- OUTSIDE RECORDS SUMMARY | 2025-06-26 18:18 | XMS_ITS | Clinical Summary ---
Author Organization [address] [facility] Address [address] [place] [address] Phone Care Team Providers Care Substitute School Nurse Name Role Phone Kim Herron Primary Care Provider [phone] Allergies Active Allergy Reactions Criticality Noted Date Comments Aspirin 01/29/2022 Cetirizine 01/29/2022 Fluconazole 01/29/2022 Gabapentin 01/29/2022 Primidone 01/29/2022 Medications albuterol sulfate (Proair Digihaler) 90 mcg/actuation aero powdr breath act w/sensor Inhale into the lungs. Active clonazePAM (KlonoPIN) 0.5 mg tablet Take 0.5 mg by mouth 2 times daily as needed. Active cyclobenzaprine (FLEXERIL) 5 mg tablet Take 5 mg by mouth 3 times daily as needed. Active ibuprofen 200 mg capsule Take by mouth. Activ e levothyroxine (SYNTHROID, LEVOTHROID) 25 mcg tablet Take 25 mcg by mouth daily. Active oxyBUTYnin XL (DITROPAN-XL) 10 mg 24 hr tablet Take 10 mg by mouth daily. Active oxyCODONE (ROXICODONE) 5 mg immediate release tablet Take one tablet every 4 hours as needed for pain 4 Active sertraline (ZOLOFT) 50 mg tablet Take 50 mg by mouth daily. Active sertraline (ZOLOFT) 50 mg tablet Take 1.5 Tablets by mouth. 7 Active silver sulfADIAZINE (SILVADENE, SSD) 1 % cream Apply topically to nail bed daily 2 Active Medical History Medical History Date Comments Asthma DX:Asthma Essential hypertension DX:Essent ial hypertension Anxiety state DX:Anxiety state Depressive disorder DX:Depressiv e disorder Social History Tobacco Use Types Packs/Day Years Used Date Smoking Tobacco: Never Smokeless Tobacco: Never Tobacco Cessation:Counseling Given: Not Answered Alcohol Use Standard Drinks/Week Comments Never 0 (1 standard drink = 0.6 oz pur e alcohol) Comments Unknown Sex and Gender Information Value Date Recorded Sex Assigned at Not on file Legal Sex Female 1:29 AM EST Gender Identity Not on file Sexual Orientation Not on file Last Filed Vital Signs Vital Sign Reading Time Taken Comments Blood Pressure - - Pulse - - Temperature - - Respiratory Rate - - Oxygen Saturation - - Inhaled Oxygen Concentration - - Weight 97.5 kg (215 lb) 07/14/2024 10:56 AM EST Height 162.6 cm (5' 4.02 ) 07/14/2024 10:[address] Body Mass Index 36.89 07/14/2024 10:56 AM EST Plan of Treatment Health Maintenance Due Date Last Done Comments Breast Cancer Screening 1968 Colorectal Cancer Screening: Colonoscopy 1968 Drug Screen 1968 Non-Opioid Controlled Substance Agreement 1968 Hepatitis B Vaccines (1 of 3 - 19+ 3-dose series) 10/10/1987 Cervical Cancer Screening: Pap Smear 1989 RSV Immunization Adult Patients (1 - Risk 50-74 years 1-dose series) 2018 Zoster Vaccines (2 of 2) 09/06/2020 07/12/2020 Cholesterol Screening (Lipid Panel) 06/09/2022 HIV Screening 06/09/2022 Hepatitis C Screening 06/09/2022 Medicare Annual Wellness Visit 06/09/2022 Social Influencers of Health Screening 06/09/2022 Depression Screening 07/07/2024 COVID-19 Vaccine ( season) 2025 06/26/2023, 05/22/2022, 06/28/2021, Additional history exists Influenza Vaccine (#1) 2025 , 03/24/2023, 04/03/2022, Additional history exists DTaP,Tdap,and Td Vaccines (2 - Td or Tdap) 01/05/2030 01/06/2020 Pneumococcal Vaccine: 50+ Years Completed 04/03/2022 HIB Vaccines Aged Out No longer eligi ble based on patient's age to complete this topic HPV Vaccines Aged Out No longer eligi ble based on patient's age to complete this topic Hepatitis A Vaccines Aged Out No long er eligible based on patient's age to complete this topic IPV Vaccines Aged Out No longer eligi ble based on patient's age to complete this topic MMR Vaccines Aged Out No longer eligi ble based on patient's age to complete this topic Meningococcal ACWY Vaccine Aged Out N o longer eligible based on patient's age to complete this topic Meningococcal B Vaccine Aged Out No l onger eligible based on patient's age to complete this topic RSV Immunization Patients Under 20 months Aged Out No longer eligible based on patient's age to complete this topic Varicella Vaccines Aged Out No longer eligible based on patient's age to complete this topic Insurance MEDICAID - [place] MEDICARE Care Teams Substitute School Nurse Relationship Specialty Start Date End Date Kim Herron PA [address] [place] [address] PCP - General Internal Medicine 12/17/21
--- OUTSIDE RECORDS SUMMARY | 2025-06-26 18:18 | XMS_ITS | Clinical Summary ---
Author Organization [facility] Address [address] [place] [address] Care Team Providers Care Carpenters Name Role Phone [facility] Primary Care Provide r Allergies Active Allergy Reactions Criticality Noted Date Comments Aspirin Muscle Pain 01/29/2022 Gabapentin Alopecia High 01/29/2022 Cetirizine Diplopia 08/09/2024 Medications Trelegy Ellipta 200-62.5-25 mcg blister with device USE 1 INHALATION DAILY FOR 30 DAYS 5 Active levothyroxine (SYNTHROID, LEVOTHROID) 25 mcg tablet Take 25 mcg by mouth once a day. Active montelukast (SINGULAIR) 10 mg tablet SMARTSI Tablet(s) By Mouth Every Night 4 Active fluticasone propionate (FLONASE) 50 mcg/actuation nasal spray USE 2 SPRAYS INTO EACH NOSTRIL DAILY FOR 30 DAYS 4 Active clonazePAM (KlonoPIN) 0.5 mg tablet Take 0.5 mg by mouth 2 times daily as needed. Active amLODIPine (NORVASC) 5 mg tablet SMARTSI Tablet(s) By Mouth Daily 5 Active Ventolin HFA 90 mcg/actuation inhaler SMARTSI-2 Puff(s) Via Inhaler Every 4-6 Hours PRN 4 Active roflumilast (Daliresp) 500 mcg tablet Take 500 mcg by mouth once a day. Active baclofen (LIORESAL) 10 mg tablet Take 5 mg by mouth nightly as needed for muscle spasms. Active fexofenadine (JOHN) 180 mg tablet Take 180 mg by mouth once a day. Active acetaminophen (TYLENOL) 325 mg tablet Take 650 mg by mouth every 6 hours as needed for pain. Active Active Problems Problem Noted Date Diagnosed Date Primary osteoarthritis of right foot 12/01/2024 Encounters Date Type Department Care Team Description 04/29/2025 1:30 PM EDT Follow-Up [facility] [address] [place] [id number] Chava Oscar MD Osteoarthritis of right foot, unspecified osteoarthritis type (Primary Dx) 04/20/2025 9:34 AM EDT - 04/20/2025 11:59 PM EDT Hospital Encounter [facility] [address] [place] [address] S/P hardware removal; Primary osteoarthritis of right foot Discharge Disposition: Home or Self Care (01) 04/19/2025 9:20 AM EDT Follow-Up [facility] [address] [place] [id number] Cristiane Andrews PA S/P hardware removal (Primary Dx); Primary osteoarthritis of right foot 04/15/2025 Orders Only [facility]nic [address] [place] [id number] Silvia Miles CMA Primary osteoarthritis of right foot (Primary Dx) 04/08/2025 Telephone [facility] Podiat[facility] [address] [place] [address] Human Resource Consultant: Cristiane Fairchild PA from Last 3 Months Social History Tobacco Use Types Packs/Day Years Used Date Smoking Tobacco: Former Cigarettes Smokeless Tobacco: Never Tobacco Cessation:Counseling Given: Not Answered Alcohol Use Standard Drinks/Week Comments Not Currently 0 (1 standard drink = 0.6 oz pur e alcohol) social Comments Unknown Sex and Gender Information Value Date Recorded Sex Assigned at Female 08/02/2024 9:31 AM EST Legal Sex Female 11:59 AM EST Gender Identity Female 08/02/2024 9:31 AM EST Sexual Orientation Straight 09/03/2024 6: 28 AM EST Last Filed Vital Signs Vital Sign Reading Time Taken Comments Blood Pressure 143/80 12/01/2024 2:15 PM EDT Pulse 55 12/01/2024 2:15 PM EDT Temperature 36.7 C (98.1 F) 12/01/2024 2:15 PM EDT Respiratory Rate 16 12/01/2024 2:15 PM EDT Oxygen Saturation 96% 12/01/2024 2:15 PM EDT Inhaled Oxygen Concentration - - Weight 96.6 kg (213 lb) 12/01/2024 6:04 AM EDT Height 160.8 cm (5' 3.31 ) 12/01/2024 6:04 AM ED T Body Mass Index 37.37 12/01/2024 6:04 AM EDT Plan of Treatment Health Maintenance Due Date Last Done Comments Cervical Cancer Screening 1968 Colonoscopy 1968 FOBT / Fit Test 1968 HIV Screening 1968 HPV and Pap Smear 1968 Hepatitis C Screening 1968 Pap Smear 1968 Sigmoidoscopy 1968 Medicare AWV 1969 Hepatitis B Vaccines (1 of 3 - 19+ 3-dose series) 10/10/[address] Lung Cancer Screening (Baseline) 2018 Zoster Vaccines (2 of 2) 09/06/2020 07/12/2020 Alcohol/Substance Use Screening 07/07/2024 Depression Screening and Follow-Up 07/07/2024 Social Drivers of Health Svitlana ual Screening 07/07/2024 COVID-19 Vaccine (6 - 2024-2 6 season) 2025 06/26/2023, 05/22/2022, 06/28/2021, Additional history exists Cologuard 11/16/2027 11/15/2024, 11/09/2021 Colon Cancer Screening 11/16/2027 Diabetes Screening 12/02/2027 12/01/2024 DTaP,Tdap,and Td Vaccines (2 - Td or Tdap) 01/05/2030 01/06/2020 Pneumococcal Vaccine: 50+ Years Completed Influenza Vaccine Completed 03/22/2025, , 03/24/2023, Additional history exists Medical Devices Implanted Type Area Capture Manager Device Identifier Shelf Expiration Date Model / Serial / Lot Infuse Small Kit - [id number] Implanted:Qty: 1 on 12/01/2024 by Chava Oscar MD at [facility] Implant Medtronic 01/04/2026 [id number] / / [id number] Implant Bicortical Compression Continuous [id number] Speedtitan - [id number] Implanted:Qty: 1 on 12/01/2024 by Chava Oscar MD at [facility] Implant [employer] 05/07/2027 [id number] / / [id number] Screw Cortex Self-Tapping Stainless Steel [id number] - [id number] Implanted:Qty: 1 on 12/01/2024 by Chava Oscar MD at [facility] Screw [employer] [id number] / / Procedures * Due to [place] law, this organization might not be sharing negative HIV tests. Procedure Name Priority Date/Time Associated Diagnosis Comments CT LOWER EXTREMITY RIGHT WO CONTRAST Routine 04/20/2025 9:44 AM EDT S/P hardware removal Primary osteoarthritis of right foot XR FOOT 3+ VW RIGHT WEIGHT BEARING Routine 04/19/2025 9:16 AM EDT Primary osteoarthritis of right foot BASIC METABOLIC PANEL STAT 12/01/2024 6:40 AM EDT from Last 3 Months or Most Recently Relevant to Health Maintenance Results * Due to [place] law, this organization might not be sharing negative HIV tests. * CT Lower Extremity Right WO Contrast (04/20/2025 9:44 AM EDT) Anatomical Region Laterality Modality Lower Extremities, Femur Right Compute d Tomography 04/20/2025 10:5 3 AM EDT Impressions 04/21/2025 2:19 PM EDT 1. Postsurgical changes of prior triple hindfoot arthrodesis with solid osseous fusion. Partial osseous fusion across the navicular and cuneiform articulations. No hardware-related complications. 2. Multifocal osteoarthritis. If this radiology report contains a blank impression section, it is an incomplete radiology report. Please contact the interpreting radiologist or applicable radiology division as soon as possible to obtain the completed interpretation. Workstation ID: [id number] Narrative 04/21/2025 2:19 PM EDT INDICATION: Check for complete fusion and hardware complications Z98.890 - I10 - Other specified postprocedural states Z98.890 - I10 - Other specified postprocedural states. TECHNIQUE: Volumetric CT of the right foot was performed without intravenous contrast utilizing standard departmental protocol. COMPARISON: 04/19/2025 FINDINGS: Redemonstrated postsurgical changes of prior triple hindfoot arthrodesis with solid osseous fusion across subtalar joints. Osseous fusion also seen across the talonavicular and calcaneocuboid joints. Hardware across dorsal aspect of the hindfoot at the calcaneocuboid, talonavicular and navicular and cuneiform articulations. Partial osseous fusion across the navicular and cuneiform articulations. Minimal streak artifact from hardware somewhat limits evaluation. Internally fixated healed fracture of the distal fibula. Multiple corticated densities inferior to the medial malleolus related to remote trauma. Vacated tracts from prior removal of syndesmotic screw. Talar dome is intact. Mild to moderate tibiotalar joint osteoarthritis. Osseous structures appears demineralized. Mild osteoarthritis involving first metatarsophalangeal, interphalangeal and midfoot joints. Lucency with cortical defect in the calcaneus related to prior bone graft harvesting site. Persistent chronic deformity of the third metatarsal head. No acute fracture. Visualized tendons are grossly intact. Mild to moderate fatty infiltration of the musculature. No drainable fluid collection. Mild nonspecific subcutaneous edema. Resulting Agency Comment [id number] Procedure Note Yandel Lynch MD - 04/21/2025 INDICATION: Check for complete fusion and hardware complications Z98.890- I10 - Other specified postprocedural states Z98.890 - I10 - Otherspecified postprocedural states. TECHNIQUE: Volumetric CT of the right foot was performed withoutintravenous contrast utilizing standard departmental protocol. COMPARISON: 04/19/2025 FINDINGS: Redemonstrated postsurgical changes of prior triple hindfoot arthrodesiswith solid osseous fusion across subtalar joints. Osseous fusion also seenacross the talonavicular and calcaneocuboid joints. Hardware across dorsalaspect of the hindfoot at the calcaneocuboid, talonavicular and navicularand cuneiform articulations. Partial osseous fusion across the navicularand cuneiform articulations. Minimal streak artifact from hardwaresomewhat limits evaluation. Internally fixated healed fracture of thedistal fibula. Multiple corticated densities inferior to the medialmalleolus related to remote trauma. Vacated tracts from prior removal ofsyndesmotic screw. Talar dome is intact. Mild to moderate tibiotalar jointosteoarthritis. Osseous structures appears demineralized. Mildosteoarthritis involving first metatarsophalangeal, interphalangeal andmidfoot joints. Lucency with cortical defect in the calcaneus related toprior bone graft harvesting site. Persistent chronic deformity of the third metatarsal head. No acute fracture. Visualized tendons are grossly intact. Mild to moderate fatty infiltrationof the musculature. No drainable fluid collection. Mild nonspecificsubcutaneous edema. IMPRESSION: 1. Postsurgical changes of prior triple hindfoot arthrodesis with solidosseous fusion. Partial osseous fusion across the navicular and cuneiformarticulations. No hardware-related complications. 2. Multifocal osteoarthritis. If this radiology report contains a blank impression section, it is anincomplete radiology report. Please contact the interpreting radiologistor applicable radiology division as soon as possible to obtain thecompleted interpretation. Workstation ID: [id number] Cristiane MILLER IMG CT PROCEDURES Final Result * XR Foot 3+ vw Right Weight Bearing (04/19/2025 9:16 AM EDT) Anatomical Region Laterality Modality Lower Extremities, Foot Right Computed Radiography 04/19/2025 3:12 PM EDT Impressions 04/19/2025 3:14 PM EDT FINDINGS/IMPRESSION: Postsurgical changes of prior hindfoot arthrodesis with solid osseous fusion. No interval change in the alignment. Intact hardware. Partially visualized hardware in the distal fibula. Postsurgical changes of of the fifth ray at the level of PIP joint. Chronic fracture deformity of the third metatarsal head. Osseous structures appear demineralized. Soft tissue swelling. No acute fracture. If this radiology report contains a blank impression section, it is an incomplete radiology report. Please contact the interpreting radiologist or applicable radiology division as soon as possible to obtain the completed interpretation. Workstation ID: [id number] Narrative 04/19/2025 3:14 PM EDT COMPARISON: 03/22/2025 Resulting Agency Comment [id number] Procedure Note Yandel Lynch MD - 04/19/2025 COMPARISON: 03/22/2025 IMPRESSION: FINDINGS/IMPRESSION: Postsurgical changes of prior hindfoot arthrodesis with solid osseousfusion. No interval change in the alignment. Intact hardware. Partiallyvisualized hardware in the distal fibula. Postsurgical changes of of thefifth ray at the level of PIP joint. Chronic fracture deformity of thethird metatarsal head. Osseous structures appear demineralized. Softtissue swelling. No acute fracture. If this radiology report contains a blank impression section, it is anincomplete radiology report. Please contact the interpreting radiologistor applicable radiology division as soon as possible to obtain thecompleted interpretation. Workstation ID: [id number] Cristiane MILLER IMG XR PROCEDURES Final Result * (ABNORMAL) Basic Metabolic Panel (12/01/2024 6:40 AM EDT) NA 142 135 - 145 mmol/L 12/01/2024 7:12 AM EDT [facility] K 3.9 3.5 - 5.3 mmol/L 12/01/2024 7:12 AM EDT [facility] Cl 105 98 - 107 mmol/L 12/01/2024 7:12 AM EDT [facility] CO2 24 22 - 32 mmol/L 12/01/2024 7:12 AM EDT [facility] BUN 20 7 - 23 mg/dL 12/01/2024 7:12 AM EDT [facility] Creatinine 0.71 0.50 - 1.20 mg/dL 12/01/2024 7:12 AM EDT [facility] Glucose 125(H) 65 - 99 mg/dL 12/01/2024 7:12 AM EDT [facility] Calcium 9.0 8.6 - 10.5 mg/dL 12/01/2024 7:12 AM EDT [facility] Anion Gap 13 5 - 15 12/01/2024 7:12 AM EDT [facility] eGFR >90 >=60 mL/min/1. 73m2 12/01/2024 7:12 AM EDT [facility] Comment:The estimated glomer ular filtration rate (eGFR) is calculated using a new formula developed by the NKF-ASN task force to eliminate race-based correction factors. The new formula uses serum/plasma creatinine, age, and gender to determine eGFR. A value below 60mls/min might indicate kidney disease and will be flagged. For additional information, see Citlali et al, Am J Kidney Dis. 2021;79(2):268- 288, A Unifying Approach for GFR estimation: Recommendations of the NKF-ASN Task Force on Reassessing the Inclusion of Race in Diagnosing Kidney Disease . Blood Structure of peripheral vein / Unknown Venipuncture / Unknown 12/01/2024 6:40 AM EDT 12/01/2024 6:45 AM EDT us Rach Be NP LAB BLOOD ORDERABLES Final R esult [facility] [address] [place] [address], from Last 3 Months or Most Recently Relevant to Health Maintenance Insurance MEDICARE [facility] Advance Directives * Presumed Full Code (Latest Code Status on File) Date Activated Date Inactivated Comments 12/01/2024 5:55 AM 12/01/2024 5:42 PM Care Teams Carpenters Relationship Specialty Start Date End Date [facility] [address] [place], [place] [address] [place] [address] PCP - General 08/02/24
--- OUTSIDE RECORDS SUMMARY | 2025-06-26 18:18 | XMS_ITS | Encounter Summary ---
Author Organization [facility] Address [address] [place] [address] Care Team Providers Care Cellular Phone Repairer Name Role Phone Yony Anne Primary Care Provide r Encounter Details Date Type Department Care Team (Late st Contact Info) Description 11/12/2024 [facility] Message Intial Department [address] [place] [phone] Mychart, Generic Provider [address] [place], [place] [id number] Questionnaire Submission Social History Tobacco Use Types Packs/Day Years Used Date Smoking Tobacco: Never Assessed Comments Unknown Sex and Gender Information Value Date Recorded Sex Assigned at Female 08/02/2024 9:31 AM EST Legal Sex Female 11:59 AM EST Gender Identity Female 08/02/2024 9:31 AM EST Sexual Orientation Straight 09/03/2024 6: 28 AM EST documented as of this encounter Plan of Treatment Not on file documented as of this encounter Visit Diagnoses Not on filedocumented in this encounter Care Teams Cellular Phone Repairer Relationship Specialty Start Date End Date Yony Anne [address] [place] [phone] PCP - General 08/02/24 documented as of this encounter
[2025-06-26 18:49] LABS: Appearance Urine Clear; Glucose Urine UA Negative (Negative); PH 6.0 (5.0-9.0); Specific Gravity - Urine 1.020 (1.005-1.025); UMIC TRIGGER UACC YES
[2025-06-26 19:23] VITALS: BP 158/63; PULSE 66; RESP 20; TEMP 36.6; O2SAT 97
[2025-06-26 19:39] VITALS: BP 158/63; PULSE 66; RESP 20; TEMP 36.6; O2SAT 97
== END 2025-06-26 19:39 | disposition home or self-care (01) ==
PROVIDERS: Nurse Practitioner; Emergency Provider Emergency Medicine; PCP Internal Medicine
DX: L08.9 Local infection of the skin and subcutaneous tissue, unspecified (principal); R30.0 Dysuria; Z79.899 Other long term (current) drug therapy
CPT/HCPCS: 81001; 87070; 87205; 99283